=== PATIENT | female | born 1940 | race Caucasian/White ===

== ENCOUNTER 2016-08-18 06:31 | Day surgery (SDC) | payer OTHER, BC ==
[2016-08-14 14:35] VITALS: BMI 35.0
[~2016-08-18] VITALS: Ht 165.1 cm; Wt 97.3 kg
[~2016-08-18 06:31] MED LIST: AMLO-114 PO; ATEN50TA8 PO; LACTATED RINGER'S 1000ML 1,000 ML IV SCH; RIVA1TAB4 PO; VALS320T2 PO
[2016-08-18] MEDS ORDERED: LACTATED RINGER'S 1000ML 1,000 ML IV ONE (07:00)
[2016-08-18] MEDS ORDERED: AMLO-114 PO (07:03)
[2016-08-18] MEDS ORDERED: ATEN50TA8 PO (07:04)
[2016-08-18 07:05] VITALS: BP 185/97; PULSE 68; TEMP 36.4; O2SAT 93; Ht 165.1 cm; Wt 97.3 kg
[2016-08-18] MEDS ORDERED: FENTANYL CITRATE INJ 50 MCG/1 ML 2 ML VIAL ONE (08:39)
--- NOTE | 2016-08-18 08:44 | Endo History and Physical ---
History & Physical Date of Service: Aug 18, 2016. Chief Complaint: Biliary stent removal Referring Physician: History of Present Illness 76 year old female with a history of abdominal pain found to have CBD on a prior EUS, she is s/p ERCP with biilary stent placement. she presents today for stent removal and a repeat cholangiogram. Past Surgical History Hx Cardiac Surgery: No Hx Abdominal Surgery: Yes (LAP JASON, OVARIAN CYSTECTOMY, BSO) Hx Post-Op Nausea and Vomiting: Yes Hx Cancer Surgery: No Hx Thoracic Surgery: No Hx Orthopedic: Yes (R TKA, L TKA ) Hx Urinary Tract Surgery: No Social History Smoking Status: Never Smoker Hx Substance Use: No Hx Alcohol Use: No Allergies Coded Allergies: Cinnamon (Verified Allergy, Severe, throat swelling - "closes my wind pipe ", 08/18/16) Garlic (Verified Allergy, Severe, throat swelling - "closes wind pipe", 08/18/16) Uncoded Allergies: PAIN MEDS (Adverse Reaction, Unknown, SLEEPY - NAUSEATED, 08/14/16) Current Medications Reported Home Medications Medications Dose Route/Sig Max Daily Dose Days Date Category Dose Instructions Tenormin (Atenolol) 50 Mg Tab 50 Mg PO BID 08/18/16 Reported Norvasc (Amlodipine Besylate) 10 Mg Tab 10 Mg PO DAILY 08/18/16 Reported Xarelto (Rivaroxaban) 20 Mg Tab 20 Mg PO QAM 08/14/16 Reported PATIENT REPORTS SHE HASN'T BEEN TAKING THIS DUE TO CONCERN FOR BLEEDING WITH UPCOMING SURGERY. PATIENT INSTRUCTED TO CONTACT PCP AND SURGEON TODAY FOR MEDICATIONS INSTRUCTIONS FOR PRIOR TO HER SURGERY. Diovan Hct 320MG/25MG (HCTZ/Valsartan) 1 Tab Tab 1 Tab PO QAM 08/14/16 Reported Vital Signs Weight (Kilograms): 97.27 Height (Feet): 5 Height (Inches): 5 Date Time Temp Pulse Resp B/P Pulse Ox O2 Delivery O2 Flow Rate FiO2 08/18/16 07:05 36.4 68 18 185/97 93 Room Air Physical Exam General Appearance: no apparent distress Respiratory/Chest: Auscultation: deminished air movement, inspiratory wheezing Cardiovascular: Heart Auscultation: RRR Abdomen: Inspection & Palpation: soft, RUQ tenderness Assessment and Plan ERCP today for biliary stent removal and a repeat cholangiogram. We have discussed the risks to include bleeding, infection, perforation, pain, and pancreatitis.
[2016-08-18] MEDS: INDOMETHACIN 50 MG SUPP PR SCH (09:10)
[2016-08-18] MEDS ORDERED: PROPOFOL IV EMULSION 10 MG/ML 20 ML VIAL IV ONE (09:24)
[2016-08-18] MEDS ORDERED: ONDANSETRON INJ 2 MG/ML 2 ML VIAL ONE (09:25)
[2016-08-18] MEDS ORDERED: DEXAMETHASONE SOD INJ 4 MG/ML VIAL ONE (09:25)
[2016-08-18] MEDS ORDERED: LABETALOL HCL IV 5 MG/ML 20ML ONE (09:25)
[2016-08-18] MEDS ORDERED: ONDANSETRON INJ 2 MG/ML 2 ML VIAL IV PRN ×2 (09:30→09:45)
[2016-08-18] MEDS ORDERED: EpHEDrine SULFATE INJ 50 MG/ML AMP IV PRN (09:30)
[2016-08-18] MEDS ORDERED: FENTANYL CITRATE INJ 50 MCG/1 ML 2 ML VIAL IV PRN (09:30)
[2016-08-18] MEDS ORDERED: ATROPINE SULFATE 0.1 MG/ML 5ML SYR IV PRN (09:30)
--- NOTE | 2016-08-18 09:38 | [facility] Post Operative Brief Note ---
Immediate Operative Summary Operative Date Aug 18, 2016. 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
--- NOTE | 2016-08-18 09:40 | Discharge Instructions ---
Endoscopy Patient Instructions Date / Procedure(s) Performed Aug 18, 2016. ERCP Allergy Information Coded Allergies: Cinnamon (Verified Allergy, Severe, throat swelling - "closes my wind pipe ", 08/18/16) Garlic (Verified Allergy, Severe, throat swelling - "closes wind pipe", 08/18/16) Uncoded Allergies: PAIN MEDS (Adverse Reaction, Unknown, SLEEPY - NAUSEATED, 08/14/16) Discharge Date / Findings Aug 18, 2016. Extension of an existing biliary sphincterotomy Nodularity of the ampulla (likely inflammatory) Medication Instructions Reported Home Medications Medications Dose Route/Sig Max Daily Dose Days Date Category Dose Instructions Tenormin (Atenolol) 50 Mg Tab 50 Mg PO BID 08/18/16 Reported Norvasc (Amlodipine Besylate) 10 Mg Tab 10 Mg PO DAILY 08/18/16 Reported Xarelto (Rivaroxaban) 20 Mg Tab 20 Mg PO QAM 08/14/16 Reported PATIENT REPORTS SHE HASN'T BEEN TAKING THIS DUE TO CONCERN FOR BLEEDING WITH UPCOMING SURGERY. PATIENT INSTRUCTED TO CONTACT PCP AND SURGEON TODAY FOR MEDICATIONS INSTRUCTIONS FOR PRIOR TO HER SURGERY. Clementvan Hct 320MG/25MG (HCTZ/Valsartan) 1 Tab Tab 1 Tab PO QAM 08/14/16 Reported Provider Instructions Activity Restrictions - No exercising or heavy lifting for 24 hours. - Do not drink alcohol the day of the procedure. - Do not drive a car or operate machinery until the day after the procedure. - Do not make any important decisions or sign important papers in 24 hours after the procedure. Following Day: - Return to full activity which may include returning to work/school. Diet Clear liquid diet today Regular diet on Sunday Treatment For Common After Affects For mild abdominal pain, bloating, or excessive gas: - Rest - Eat lightly - Lie on right side Follow-Up Information Follow-up with Dr Mlulins as needed Restart Xarelto in 72 hours (Sunday) Anesthesia Information What You Should Know You have had a procedure that required some medicine to reduce anxiety and discomfort. This treatment is called moderate sedation. After receiving the treatment, you may be sleepy, but you will be able to breathe on your own. The effects of the treatment may last for several hours. Follow these instructions along with Activity/Diet recommendations noted above: * Do NOT do anything where dizziness or clumsiness would be dangerous. * Rest quietly at home today, then you can be up and about tomorrow. * Have a responsible person stay with you the rest of today. * You may have had an I.V. today. If so, you may take the dressing off later today. Recommendations Call your doctor if: * Trouble breathing * Continuous vomiting for more than 24 hours * Temperature above 101 degrees * Severe abdominal pain or bloating * Pain not relieved by pain medicine ordered * There is increased drainage or redness from any incision * A large amount of rectal bleeding greater than 2-3 tablespoons. (If you had a polyp/s removed or have hemorrhoids, a small amount of blood - from the rectum is to be expected.) * You have any unanswered questions or concerns. IN THE EVENT OF A SERIOUS EMERGENCY, GO TO THE NEAREST EMERGENCY ROOM Your discharge instructions were prepared by provider Najma Mullins. Patient Instructions Signature Page Ganesh Euceda Patient (or Guardian) Signature/Date: I have read and understand the instructions given to me by my caregivers. Caregiver/RN/Doctor Signature/Date: The above-named patient and/or guardian has received patient instructions on this date. + Original Patient Signature Page (only) stays with chart. Please make copy for patient.
--- NOTE | 2016-08-18 09:55 | DIAGNOSTIC IMAGING REPORT ---
ERCP BILIARY DUCTAL CLINICAL HISTORY: ERCP W/ STENT REMOVAL COMPARISON STUDY: None. FLUOROSCOPY TIME: 45 seconds. FINDINGS: 9 fluoroscopic images were obtained. Initial image demonstrates a biliary stent. Subsequent images demonstrate cannulation of the common bile duct with balloon sweep through the common bile duct. There is no significant biliary ductal dilatation. There are cholecystectomy clips. IMPRESSION: Fluoroscopic images from ERCP with stent removal Electronically signed by: Jarret Mendoza M.D. 08/18/2016 9:54 AM Dictated Date/Time: 08/18/2016 9:48 AM
--- NOTE | 2016-08-18 10:26 | Anesthesiology Progress Note ---
Anesthesia Post Op Note Date & Time Aug 18, 2016 at 10:26 Vital Signs Pain Intensity: 0 Vital Signs Past 12 Hours Date Time Temp Pulse Resp B/P Pulse Ox O2 Delivery O2 Flow Rate FiO2 08/18/16 10:20 36.5 60 16 169/91 96 Room Air 08/18/16 10:10 36.5 61 16 171/85 98 Room Air 08/18/16 10:00 63 16 177/82 100 Mask 10 08/18/16 09:50 62 16 167/82 100 Mask 10 08/18/16 09:41 36.8 67 16 167/108 100 Mask 10 08/18/16 07:05 36.4 68 18 185/97 93 Room Air Notes Mental Status: alert / awake / arousable, participated in evaluation Pt Amnestic to Procedure: Yes Nausea / Vomiting: adequately controlled Pain: adequately controlled Airway Patency, RR, SpO2: stable & adequate BP & HR: stable & adequate Hydration State: stable & adequate Anesthetic Complications: no major complications apparent
[2016-08-18 10:35] VITALS: BP 178/98; PULSE 59; TEMP 36.4; O2SAT 97
[2016-08-18 11:05] VITALS: BP 154/100; PULSE 62; O2SAT 95
[2016-08-18 11:35] VITALS: BP 179/93; PULSE 64; TEMP 36.4; O2SAT 95
[2016-08-18] MEDS ORDERED: ROCURONIUM BROMIDE 10 MG/ML 5 ML VIAL ONE (12:09)
--- NOTE | 2016-08-19 00:44 | GI REPORT ---
Procedure Date: 08/18/2016 8:54 AM Procedure: ERCP Indications: Stent removal Medicines: General Anesthesia, Indocin 100 mg DE Complications: No immediate complications. Estimated blood loss: Minimal. Estimated Blood Loss: Estimated blood loss was minimal. Procedure: Pre-Anesthesia Assessment: - Prior to the procedure, a History and Physical was performed, and patient medications, allergies and sensitivities were reviewed. The patient's tolerance of previous anesthesia was reviewed. - The risks and benefits of the procedure and the sedation options and risks were discussed with the patient. All questions were answered and informed consent was obtained. - Patient identification and proposed procedure were verified prior to the procedure by the physician, the nurse and the machinist/machine builder. The procedure was verified in the procedure room. - Pre-procedure physical examination revealed no contraindications to sedation. - ASA Grade Assessment: III - A patient with severe systemic disease. - The anesthesia plan was to use general anesthesia. - Immediately prior to administration of medications, the patient was re-assessed for adequacy to receive sedatives. - The heart rate, respiratory rate, oxygen saturations, blood pressure, adequacy of pulmonary ventilation, and response to care were monitored throughout the procedure. - The physical status of the patient was re-assessed after the procedure. After obtaining informed consent, the scope was passed under direct vision. Throughout the procedure, the patient's blood pressure, pulse, and oxygen saturations were monitored continuously. The Scope was introduced through the mouth, and advanced to the duodenum and used to cannulate the bile duct. The ERCP was accomplished without difficulty. The patient tolerated the procedure well. Findings: A route sales trainee film of the abdomen was obtained. Surgical clips, consistent with previous cholecystectomy, were seen in the area of the right upper quadrant of the abdomen. One stent ending in the main bile duct was seen. The esophagus was successfully intubated under direct vision without detailed examination of the pharynx, larynx, and associated structures, and upper GI tract. The upper GI tract was grossly normal. One biliary stent originating in the biliary tree was emerging from the major papilla. The stent was visibly occluded. A biliary sphincterotomy had been performed. The sphincterotomy appeared mildly stenosed. The major papilla was enlarged and nodular (likley inflammatory). One stent was removed from the biliary tree using a snare. The bile duct was deeply cannulated with the short-nosed traction sphincterotome (Omni 35) and 0.035 in Acrobat guidewire during the first attempt. Contrast was injected. I personally interpreted the bile duct images. The biliary orifice was stenotic appearing. This appeared benign. The biliary sphincterotomy was extended with a monofilament short-tip traction sphincterotome using ERBE electrocautery resulting in good drainage from the biliary tree. There was no post-sphincterotomy bleeding. To discover objects, the biliary tree was swept with an 8.5 - 15 mm balloon starting at the bifurcation. A small amount of debris was swept from the duct. Nothing remained in the duct on occlusion cholangiogram, Several biopsies were taken in the area of the papilla through the ERCP scope with the cold forceps for histology (care was taken to avoid the region of the pancreatic orifice). The endoscope was withdrawn from the patient. Impression: - One visibly occluded stent from the biliary tree was seen in the major papilla. - Prior biliary endoscopic sphincterotomy appeared stenosed.. - One stent was removed from the biliary tree. - A sphincterotomy was extended resulting in good biliary drainage. - Biopsies were taken with a cold forceps for histology in the area of the papilla. Recommendation: - Avoid aspirin and nonsteroidal anti-inflammatory medicines for 1 week. - Clear liquid diet today. - Observe patient's clinical course following today's ERCP with therapeutic intervention. - Await path results. Najma Mullins D.O. Najma Mullins, 08/18/2016 9:48:18 AM This report has been signed electronically. Note Initiated On: 08/18/2016 8:54 AM I attest to the content of the Intraoperative Record and orders documented therein, exceptions below
--- NOTE | 2016-08-25 08:11 | EDITING REQUIRED CODING QUERY ---
The patient had an ERCP Biliary stent removal History of gallstones A supporting diagnosis is required for the test/procedure performed on this patient in order for us to be reimbursed by the patient's insurance. Please provide a supporting diagnosis for the following test/procedure listed below next to the test name along with your signature. *If there is no additional diagnosis for this patient that would support the following test/procedure please document that below next to the test/procedure. Test(s)/Procedure(s) that require a supporting diagnosis: * UPPER GASTROINTESTINAL ENDOSCOPY ([id number]) * DIAGNOSIS: * DOS: 08/18/16 Provider Signature: Date: Thank you Holli Lange Health Information Management For questions please call [phone]
== END 2016-08-18 12:20 | disposition home or self-care (01) ==
LOC: C.ACU 06:31
PROVIDERS: ATTEND Internal Medicine Gastroenterology
DX: Z46.59 Encounter for fitting and adjustment of other gastrointestinal appliance and device (principal); K63.3 Ulcer of intestine; Z98.890 Other specified postprocedural states